=== PATIENT | female | born 1975 | race Caucasian/White ===

== ENCOUNTER 2022-04-06 10:07 | Day surgery (SDC) | payer OTHER ==
[~2022-04-06] VITALS: Ht 182.9 cm; Wt 79.4 kg
[2022-04-06] MEDS ORDERED: MIDAZOLAM 2 MG/2 ML VIAL ONE (11:13)
[2022-04-06] MEDS ORDERED: fentaNYL citrate 0.05 MG/ML VIAL ONE (11:13)
[2022-04-06] MEDS ORDERED: diphenhydrAMINE 50 MG/ML VIAL ONE (11:13)
[2022-04-06] MEDS ORDERED: LIDOCAINE 2% 100 MG/5 ML UJET TP ONE (11:13)
[2022-04-06] MEDS ORDERED: diphenhydrAMINE 50 MG/ML VIAL IVP ONE (12:45)
[2022-04-06] MEDS ORDERED: fentaNYL citrate 0.05 MG/ML VIAL IVP ONE (12:45)
[2022-04-06] MEDS ORDERED: MIDAZOLAM 5 MG/5 ML VIAL IV ONE (12:45)
== END 2022-04-06 12:30 | disposition home or self-care (01) ==
LOC: MDS 10:07 → MMU 10:08 → MDS 12:30
PROVIDERS: ATTEND Internal Medicine Gastroenterology
DX: K62.5 Hemorrhage of anus and rectum (principal); K63.5 Polyp of colon; Z90.710 Acquired absence of both cervix and uterus; Z88.8 Allergy status to other drugs, medicaments and biological substances; Z79.899 Other long term (current) drug therapy
CPT/HCPCS: 45380; 45385; 81025; 87426; 88305; J1200; J2250; J3010